=== PATIENT | female | born 1970 | race African-American/Black ===

== ENCOUNTER 2017-08-08 11:40 | Emergency (ER) | payer OTHER ==
[~2017-08-08] VITALS: Ht 152.4 cm; Wt 81.3 kg
[2017-08-08] MEDS ORDERED: TYLENOL EXTRA500 MG PO (12:55)
[2017-08-08] MEDS ORDERED: FLEXERIL10 MG PO (12:55)
[2017-08-08] MEDS ORDERED: LIDODERM 5% P1 PATCH TD (12:55)
[2017-08-08 13:06] VITALS: BP 146/94
== END 2017-08-08 13:07 | disposition home or self-care (01) ==
LOC: EME 11:40
DX: S06.0X0A Concussion without loss of consciousness, initial encounter (principal); S16.1XXA Strain of muscle, fascia and tendon at neck level, initial encounter; S46.912A Strain of unspecified muscle, fascia and tendon at shoulder and upper arm level, left arm, initial encounter; V47.5XXA Car driver injured in collision with fixed or stationary object in traffic accident, initial encounter; Y92.411 Interstate highway as the place of occurrence of the external cause; I10 Essential (primary) hypertension; F17.200 Nicotine dependence, unspecified, uncomplicated; Z88.8 Allergy status to other drugs, medicaments and biological substances
CPT/HCPCS: 70450; 72040; 99281; 99284